=== PATIENT | female | born 1995 | race Caucasian/White ===

== ENCOUNTER 2023-09-09 21:19 | Emergency (ER) | payer OTHER, SELFPAY ==
[2023-09-09 21:21] VITALS: BP 142/72; PULSE 92; RESP 16; TEMP 36.6; O2SAT 100
--- NOTE | 2023-09-09 21:31 | ED.GENADUL_ITS ---
Discharge Plan Disposition Patient Disposition: Home Condition: Stable Discharge Details Clinical Impression: Cellulitis of left thigh Primary Care Provider: None,None ED Provider: Colin Buchanan Home Meds and New Rx's Prescriptions: New doxycycline hyclate 100 mg capsule 100 mg PO BID 7 Days Qty: 14 0RF Continued cephalexin 500 mg capsule 500 mg PO Q6H Discharge Instructions Instructions: Cellulitis (Skin Infection), Adult ED Additional Instructions: You were seen in the emergency department for your cellulitis of your left posterior thigh, we performed a nondiagnostic bedside ultrasound that showed no fluid pocket to drain. Please continue performing hot compresses as we discussed, you may restart sitz bath's and perform this at home as well and shower with Hibiclens soap. Please take Tylenol and ibuprofen for pain as needed, use the topical mupirocin the urgent care provider gave to you and try to change dressing twice daily. Keep taking the Keflex that they put you on I have sent an additional course of doxycycline to [facility] in [place] for the possibility of MRSA infection. Please return to the emergency department for severe increase in size and pain, fever, red streaking out from the area. Stand Alone Forms: Work Release HPI General Date/Time Provider Initiated Documentation: 09/09/23 21:30 . 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 Quality described as red, hard, warm to touch area with a central scab, no radiation to fever, purulent drainage, red streaking spreading outward. Severity is described as moderate. Palliating factors include started Keflex last night. Provoking factors include nothing specific. Patient not anticoagulated. Related Data Home Medications ?Medication ?Instructions ?Recorded ?Confirmed cephalexin 500 mg capsule 500 mg PO Q6H 09/09/23 09/09/23 doxycycline hyclate 100 mg capsule 100 mg PO BID 7 days #14 caps 09/09/23 Previous Rx's ?Medication ?Instructions ?Recorded doxycycline hyclate 100 mg capsule 100 mg PO BID 7 days #14 caps 09/09/23 Allergies Allergy/AdvReac Type Severity Reaction Status Date / Time Sulfa (Sulfonamide Allergy Other (See Verified 09/09/23 21:26 Antibiotics) Comment) General Stated Complaint: Cellulitis SAGE: 4 Review of Systems All systems reviewed & are unremarkable except as noted in HPI and below Exam Narrative Exam Narrative: GENERAL APPEARANCE: Well-nourished, non-toxic, awake and alert, atraumatic, no acute distress. SKIN: Warm, pink, dry, intact, x 3 macular erythematous area that is warm to touch and hard to posterior L thigh below glutes, nonfluctuant, no lymphadenitis spreading outward. HEAD: Normocephalic, atraumatic, normal hair distribution for gender/age. EYES: Normal conjunctiva, no exudates on lids/lashes. ENT: Nares patent, no circumoral cyanosis, no facial swelling NECK: Supple, trachea midline, painless cervical ROM. LUNGS/CHEST: Non-labored respirations, normal A/P diameter, symmetrical expansion, no chest wall deformity HEART (CV/PV): No peripheral edema, no JVD. ABDOMEN: Soft, non-distended, no guarding. MSK: Normal ROM, no swelling/deformity to bilateral UEs or LEs, moving all extremities without weakness, no cyanosis, spine midline without tenderness, normal curvature. NEURO: Mental Status AAOx4 - alert to person, place, time, events No facial droop, no forehead involvement. Motor: No focal weakness - strength 5/5 in bilateral UEs and LEs, proximal and distal, symmetric. Sensory: sensation intact to light touch globally. Gait normal: patient ambulated without ataxia into ED room. PSYCH: euthymic, cooperative, pleasant, appropriate speech Course Vital Signs Vital signs: Vital Signs Temperature 36.6 C 09/09/23 21:21 Pulse 92 H 09/09/23 21:21 Respiratory Rate 16 09/09/23 21:21 Blood Pressure 142/72 H 09/09/23 21:21 Pulse Oximetry 100 09/09/23 21:21 Temperature 36.6 C 09/09/23 21:21 Temperature Source Temporal Artery Scan 09/09/23 21:21 Pulse 92 H 09/09/23 21:21 Respiratory Rate 16 09/09/23 21:21 Respiratory Effort Normal 09/09/23 21:27 Blood Pressure 142/72 H 09/09/23 21:21 Blood Pressure Position Supine 09/09/23 21:21 Pulse Oximetry 100 09/09/23 21:21 Oxygen Delivery Method Room Air 09/09/23 21:21 Oxygen Flow Rate 0 09/09/23 21:21 Pain Level 6 09/09/23 21:21 Medical Decision Making This dictation utilizes [id number] dictation software and may contain unedited grammatical errors. 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 Quality described as red, hard, warm to touch area with a central scab, no radiation to fever, purulent drainage, red streaking spreading outward. Severity is described as moderate. Palliating factors include started Keflex last night. Provoking factors include nothing specific. Patients' medical history: noncontributory. Family and social history: works in climbing harness. Pertinent exam findings / vital signs include 3 x 3 macular erythematous area that is warm to touch and hard to posterior L thigh below glutes, nonfluctuant, no lymphadenitis spreading outward. Differential / pathologies of concern include cellulitis, abscess. Diagnostic studies of: - Informal POCUS for possible drainage procedure- no fluid pocket seen. Interventions of: -started dual antibiotic therapy - continue Keflex, start doxy for MRSA empiric coverage. ED Course/Assessment/Plan: 20-year-old female has a simple cellulitis to the left posterior thigh, there is no fluid pocket visualized on ultrasound, is about 3 x 3 cm, she started Keflex last night and is unlikely therapeutic quite yet, I am starting doxycycline on t op of this for coverage of MRSA. Counseled her on anti-inflammatories, sitz bath, warm compresses, decolonize yourself with Hibiclens, strict return criteria for increasing fever, red streaking outward from the area, severe increase in pain and swelling. Findings not consistent with abscess, sepsis. Disposition of Cellulitis of Left Thigh. Patient verbalized understanding of the plan and return to ED criteria and engaged in shared decision making. Medical Records Medical records reviewed: Yes I reviewed the patient's medical records. Quality:SDOH Health Related Social Needs: No Data to Display PFSH All Active Problems (Updated 09/09/23 @ 21:47 by TORSTEN Gonzalez) Cellulitis of left thigh (Acute) Social History Smoking risk assessment performed?: No
== END 2023-09-09 21:56 | disposition home or self-care (01) ==
LOC: ER 22:08
PROVIDERS: Emergency Provider Physician Assistant
DX: L03.116 Cellulitis of left lower limb (principal)
CPT/HCPCS: 99284; 99283